=== PATIENT | male | born 1970 | race Caucasian/White ===

== ENCOUNTER 2019-02-13 20:10 | Emergency (ER) | payer BC ==
[~2019-02-13] VITALS: Ht 172.7 cm; Wt 81.6 kg
[2019-02-13 20:12] VITALS: BP 133/82
--- NOTE | 2019-02-13 20:24 | NUR ---
MAGALY WILSON AT BEDSIDE FOR EVAL.
[2019-02-13] MEDS ORDERED: TDAP [DIPH/PERTUSSIS/TET] 0.5 ML VIAL IM ONE ×2 (20:30→20:37)
== END 2019-02-13 21:05 | disposition home or self-care (01) ==
LOC: ER 20:12
DX: S61.316A Laceration without foreign body of right little finger with damage to nail, initial encounter (principal); W26.8XXA Contact with other sharp object(s), not elsewhere classified, initial encounter; Y93.89 Activity, other specified; Y92.89 Other specified places as the place of occurrence of the external cause; Y99.8 Other external cause status
CPT/HCPCS: 12001; 90471; 90715; 99283; A6403